=== PATIENT | male | born 1955 | race Caucasian/White ===

== ENCOUNTER 2017-01-21 18:16 | Emergency (ER) | payer OTHER ==
[~2017-01-21] VITALS: Ht 185.4 cm; Wt 95.9 kg
[2017-01-21 18:24] VITALS: TEMP 36.7; Ht 185.4 cm; Wt 95.9 kg
[2017-01-21] MEDS ORDERED: OXYCODONE HCL IR 5 MG TAB (IMMEDIATE RELEASE) PO STA (18:57)
--- NOTE | 2017-01-21 19:36 | DIAGNOSTIC IMAGING REPORT ---
LEFT PELVIS/UNILATERAL HIP 2-3VIEWS CLINICAL HISTORY: Left hip pain following fall. COMPARISON: None FINDINGS: Alignment of the left hip is anatomic. There is no acute fracture of the proximal left femur. A lucency projects over the medial left pubic bone. This is probably artifactual. There is a moderate amount of stool within the rectum. IMPRESSION: 1. No acute fracture of the proximal left femur. 2. Lucency of the medial left pubic bone. This is likely artifactual although a nondisplaced fracture could appear similar. Electronically signed by: James Duff M.D. 01/21/2017 7:34 PM Dictated Date/Time: 01/21/2017 7:33 PM
--- NOTE | 2017-01-21 19:37 | DIAGNOSTIC IMAGING REPORT ---
LEFT KNEE 1 OR 2 VIEWS ROUTINE CLINICAL HISTORY: Fall. Left knee pain. COMPARISON: None FINDINGS: Alignment of the left knee is anatomic. There is a small left knee joint effusion. No acute fracture is identified. IMPRESSION: 1. No acute fracture. 2. Small left knee joint effusion. Electronically signed by: James Duff M.D. 01/21/2017 7:36 PM Dictated Date/Time: 01/21/2017 7:34 PM
[2017-01-21 19:55] VITALS: BP 144/88; PULSE 87; O2SAT 94
--- NOTE | 2017-01-21 20:05 | DIAGNOSTIC IMAGING REPORT ---
CT OF THE LEFT HIP WITHOUT CONTRAST CLINICAL HISTORY: Left hip pain following fall. Evaluate for fracture. COMPARISON STUDY: Left hip radiograph performed earlier today. FINDINGS: Alignment of the left hip is anatomic. There is no acute fracture. Note is made of a hematoma of the subcutaneous tissues of the proximal lateral left thigh. The hematoma measures 9.2 x 4.4 x 8.6 cm. There is moderate adjacent infiltration/hemorrhage. No intramuscular hematoma is identified by CT. Visualized portions of the left pelvis are unremarkable. There is a moderate amount stool within the rectum. IMPRESSION: 1. No acute fracture or dislocation of the left hip. 2. 9.2 x 4.4 x 8.6 cm subcutaneous hematoma of the proximal lateral left thigh. Electronically signed by: James Duff M.D. 01/21/2017 8:04 PM Dictated Date/Time: 01/21/2017 7:58 PM
--- NOTE | 2017-01-22 15:21 | EMERGENCY ROOM VISIT NOTE ---
History Report prepared by Rajinder: Irving Malik Under the Supervision of: Dr. Carlos Mason M.D. First contact with patient: 18:47 Chief Complaint: FALL Stated Complaint: FALL - PAIN AND LARGE SWELLING IN LEFT HIP History of Present Illness The patient is a 61 year old male who presents to the Emergency Room with complaints of a mechanical fall that occurred around 2 hours ago. He says that he was walking his puppy, but his dog ran off. He ran after her, and slipped and fell, landing on his left side. Per the patient's , the patient was checked out by his daughter (who is a medical anthropologist) and she recommended that the patient come here after seeing the patient's hip. The patient states that he was able to walk for a while after the fall, but ever since he got out of the car in the ED parking lot, he has been unable to walk. He has had left hip pain and swelling. He also has a scrape on his left knee, and reports a bit of pain there. The patient says that he did hit his head on the fall, but he did not black out. He denies any headaches, new neck pain, or ankle pain. He takes a baby aspirin daily. His tetanus is up to date. Source of History: patient, spouse/significant other Onset: Around 2 hours ago Position: other (global - mechanical fall) Quality: other (slipped and fell while running after puppy, landed on left side) Associated Symptoms: No LOC, No headache, No neck pain (any new) Note: Associated symptoms: Left hip pain and swelling. Left knee scrape with pain. Denies ankle pain. Review of Systems See HPI for pertinent positives & negatives. A total of 10 systems reviewed and were otherwise negative. Past Medical & Surgical Medical Problems: (1) Diabetes (2) Epilepsy (3) HTN (hypertension) Surgical Problems: (1) Heart disease Family History Diabetes mellitus Heart disease Hypertension Lung disease Social History Smoking Status: Never Smoker Alcohol Use: occasionally Marital Status: Housing Status: lives with family Occupation Status: employed Current/Historical Medications Unable to Obtain Active Prescriptions or Reported Meds Allergies Coded Allergies: Gluten (Unverified Allergy, Severe, GI SYMPTOMS, 01/21/17) WHEAT,BARLEY,RYE Physical Exam Vital Signs Date Time Temp Pulse Resp B/P (MAP) Pulse Ox O2 Delivery O2 Flow Rate FiO2 01/21/17 19:55 87 16 144/88 94 Room Air 01/21/17 18:24 36.7 95 18 146/86 96 Room Air Physical Exam Constitutional: Vital signs reviewed. Eyes: Pupils are equal round reactive to light. Conjunctiva are noninjected. ENT: Pharynx is clear without erythema or exudate. Mucous membranes are moist. Neck supple without meningeal signs. No hematoma or bony depression to left forehead. Respiratory: Clear to auscultation bilaterally. Breath sounds are equal bilaterally. Cardiovascular: Regular rate and rhythm. No rubs or gallops. GI: Soft, nondistended and nontender. Bowel sounds are present. Musculoskeletal: No midline tenderness to cervical spine. Abrasion to left shoulder without bony tenderness. Abrasion to left knee with lateral bony tenderness, no deformity. Soft tissue swelling to left hip with diffuse tenderness, no shortening. Normal distal pulses. Integumentary: No cyanosis. Neurological: The patient is awake and alert. Cranial nerves II-XII are intact. Motor is 5 out of 5 all extremities. Sensation is intact to light touch all extremities. Normal speech. No pronator drift. Psychiatric: Normal affect. Medical Decision & Procedures ER Provider Diagnostic Interpretation: Radiology results as stated below per my review and the radiologist's interpretation: LEFT KNEE 1 OR 2 VIEWS ROUTINE CLINICAL HISTORY: Fall. Left knee pain. COMPARISON: None FINDINGS: Alignment of the left knee is anatomic. There is a small left knee joint effusion. No acute fracture is identified. IMPRESSION: 1. No acute fracture. 2. Small left knee joint effusion. Electronically signed by: James Duff M.D. 01/21/2017 7:36 PM Dictated Date/Time: 01/21/2017 7:34 PM LEFT PELVIS/UNILATERAL HIP 2-3VIEWS CLINICAL HISTORY: Left hip pain following fall. COMPARISON: None FINDINGS: Alignment of the left hip is anatomic. There is no acute fracture of the proximal left femur. A lucency projects over the medial left pubic bone. This is probably artifactual. There is a moderate amount of stool within the rectum. IMPRESSION: 1. No acute fracture of the proximal left femur. 2. Lucency of the medial left pubic bone. This is likely artifactual although a nondisplaced fracture could appear similar. Electronically signed by: James Duff M.D. 01/21/2017 7:34 PM Dictated Date/Time: 01/21/2017 7:[address] OF THE LEFT HIP WITHOUT CONTRAST CLINICAL HISTORY: Left hip pain following fall. Evaluate for fracture. COMPARISON STUDY: Left hip radiograph performed earlier today. FINDINGS: Alignment of the left hip is anatomic. There is no acute fracture. Note is made of a hematoma of the subcutaneous tissues of the proximal lateral left thigh. The hematoma measures 9.2 x 4.4 x 8.6 cm. There is moderate adjacent infiltration/hemorrhage. No intramuscular hematoma is identified by CT. Visualized portions of the left pelvis are unremarkable. There is a moderate amount stool within the rectum. IMPRESSION: 1. No acute fracture or dislocation of the left hip. 2. 9.2 x 4.4 x 8.6 cm subcutaneous hematoma of the proximal lateral left thigh. Electronically signed by: James Duff M.D. 01/21/2017 8:04 PM Dictated Date/Time: 01/21/2017 7:58 PM Medications Administered Medications (Trade) Dose Ordered Sig/Nish Route Start Time Stop Time Status Last Admin Dose Admin Oxycodone HCl (Roxicodone Immediate Rel Tab) 5 mg NOW STAT PO 01/21/17 18:57 01/21/17 18:59 DC 01/21/17 19:29 5 MG ED Course 1847: The patient was evaluated in room D3B. A complete history and physical exam was performed. 1850: I discussed the patient with Dr. Limon - [facility] orthopedics- he says to just use a sling or ice, and have the patient call Saturday for follow-up. Dr. Limon will get the patient in this week. 1856: Ordered Roxicodone Immediate Rel Tab 5 mg PO. 1929: I reevaluated the patient and told him about the x-ray results. He agrees to a CT scan. 2010: I reevaluated and talked to the patient about the test results. He says that he does not have a headache. He was given head injury precautions and crutches. His wounds were cleaned and dressed. The patient verbally expressed understanding and agreement with the treatment plan. The patient will be discharged to follow up with his doctor. Medical Decision This is a 61-year-old male presents with injuries after a fall. Differential diagnosis includes contusion, concussion, intracranial hemorrhage, hip fracture , hip dislocation, hematoma. I did perform a limited focused review of portions of the patient's old chart on the electronic medical record. The patient has had no prior visits to this hospital. Blood Pressure Screening: Patient was found to have an elevated blood pressure and was referred to their primary doctor for recheck and further treatment. Medication Reconciliation: I attest that I have personally reviewed the patient' s current medication list. I did evaluate the patient as noted above. The patient is complaining of significant hip pain. He states he did hit his head but he does not have any headache and declined CT scanning. He is neurologically intact. He also has an injury to his left shoulder and knee. I did order and personally review the patient's x-rays as described above. He does not have any evidence of any acute fractures or dislocation. I did treat patient with oxycodone. I did order a CT of the left hip. I did review the images myself as well as the radiology report as described above. There is no evidence of fracture but he does have a hematoma. He is on baby aspirin as he has a history of CAD. The patient was given crutches. I did discuss the test results with him. He was advised follow closely with his doctor and discharged in good condition. He was given head injury precautions. Impression Primary Impression: Contusion of left hip Additional Impressions: Hip hematoma, left Contusion of left shoulder Left knee injury Head injury Scribe Attestation The scribe's documentation has been prepared under my direct and personally reviewed by me in its entirety. I confirm that the note above accurately reflects all work, treatment, procedures, and medical decision making performed by me. Departure Information Dispostion Home / Self-Care Prescriptions Unable to Obtain Active Prescriptions or Reported Meds Referrals No Doctor, Assigned (PCP) Patient Instructions ED Head Injury Closed, ED Hematoma, My [facility] Additional Instructions You have been examined and treated today on an emergency basis only. This is not a substitute for, or an effort to provide, complete comprehensive medical care. It is impossible to recognize and treat all injuries or illnesses in a single emergency department visit. It is therefore important that you follow up closely with your physician. Call as soon as possible for an appointment. Return for worsening symptoms or if you develop fever, vomiting, headache, dizziness or any other concerning symptoms. Problem Qualifiers Primary Impression: Contusion of left hip Encounter type: initial encounter Qualified Codes: S70.02XA - Contusion of left hip, initial encounter Additional Impressions: Hip hematoma, left Encounter type: initial encounter Qualified Codes: S70.02XA - Contusion of left hip, initial encounter Contusion of left shoulder Encounter type: initial encounter Qualified Codes: S40.012A - Contusion of left shoulder, initial encounter Left knee injury Encounter type: initial encounter Qualified Codes: S89.92XA - Unspecified injury of left lower leg, initial encounter Head injury Encounter type: initial encounter Qualified Codes: S09.90XA - Unspecified injury of head, initial encounter
== END 2017-01-21 20:32 | disposition home or self-care (01) ==
LOC: C.EDB 18:20 → C.EDD 20:32
DX: S70.02XA Contusion of left hip, initial encounter (principal); S40.012A Contusion of left shoulder, initial encounter; S89.92XA Unspecified injury of left lower leg, initial encounter; S09.90XA Unspecified injury of head, initial encounter; W01.0XXA Fall on same level from slipping, tripping and stumbling without subsequent striking against object, initial encounter; Y92.89 Other specified places as the place of occurrence of the external cause; Y93.K1 Activity, walking an animal; I25.10 Atherosclerotic heart disease of native coronary artery without angina pectoris; E11.9 Type 2 diabetes mellitus without complications; G40.909 Epilepsy, unspecified, not intractable, without status epilepticus; I10 Essential (primary) hypertension; Z83.3 Family history of diabetes mellitus; Z82.49 Family history of ischemic heart disease and other diseases of the circulatory system; Z83.6 Family history of other diseases of the respiratory system; Z79.82 Long term (current) use of aspirin